=== PATIENT | male | born 1965 | race African-American/Black ===

== ENCOUNTER 2016-11-05 13:49 | Inpatient (IN) | payer OTHER ==
[~2016-11-05] VITALS: Ht 180.3 cm; Wt 105.7 kg
--- NOTE | ~2016-11-05 | EKG ---
PATIENT: JAYMIE KELLOGG UNIT #: [id number] Ventricular Rate: 102 BPM Atrial Rate: 102 BPM P-R Interval: 150 ms QRS Duration: 88 ms Q-T Interval: 368 ms QTC Calculation(Bezet): 479 ms P [place]: 38 degrees Calculated R [place]: 30 degrees Calculated T [place]: 20 degrees Diagnosis Line: Sinus tachycardia Diagnosis Line: Possible Left atrial enlargement Diagnosis Line: Borderline ECG Diagnosis Line: No previous ECGs available Diagnosis Line: Confirmed by KRYSTAL LACY MD ([id number]) on 11/05/2016 Diagnosis Line: 7:01:21 PM INTERPRETING MD: REGINO MONTOYA
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
--- NOTE | ~2016-11-05 | US77 ---
[facility] A Service of [facility] & [facility] RADIOLOGY TEXT RESULTS PATIENT: JAYMIE KELLOGG LOCATION: [facility] 568-01 : [birth year] UNIT #: [id number] AGE: [address]: Dre Hammond MD SEX: M ORDER DR: [id number] [facility] [address] [place], [place] [address] [id number] MR#: [id number] Acc #: [id number] NAME: JAYMIE KELLOGG : 1965 SEX: M STUDY DATE/TIME: 11/05/2016 20:43 UNIT: [facility] ROOM: [facility] STUDY DESCRIPTION: US Kidney Bilateral Complete Attending Physician: Dre Hammond M.D. Ordering Physician: Elma Ortez M.D. Primary Care Physician: Primary Care Physician No MEDICAL IMAGING REPORT This report is preliminary unless electronic signature is present EXAM Bilateral renal ultrasound HISTORY Acute renal insufficiency today. Creatinine 2.5. FINDINGS Ultrasound examination of the kidneys demonstrates no renal mass or hydronephrosis. Both kidneys measure approximately 11 cm in length. No focal renal atrophy. No perinephric fluid collection. Survey of the urinary bladder is normal. IMPRESSION Normal ultrasound examination of both kidneys. Dictated by... Juwan Melendez M.D. THIS IS AN ELECTRONICALLY VERIFIED REPORT Juwan Melendez M.D. at 11/06/2016 4:12 PM PO/mariza TD: 11/06/2016 10:12 JOB #: [id number] MEDICAL IMAGING REPORT Page 1 of 1 COPY
--- NOTE | ~2016-11-05 | DS ---
Unit #: [id number] #: [id number] Patient: JAYMIE KELLGOG [id number] [address] [address] [id number] I MR#: [id number] NAME: JAYMIE KELLOGG ROOM: 568 Age: 50 Sex: M Admission Date: 11/05/2016 : 1965 Discharge Date: 11/06/2016 Attending Physician: Dre Hammond M.D. Primary Care Physician: No Primary Care Physician DISCHARGE SUMMARY DISCHARGE DIAGNOSES 1. Acute kidney injury. 2. Hypertension. 3. Rhabdomyolysis. 4. Metabolic acidosis. 5. Hypertension. HOSPITAL COURSE The patient is a 50-year-old male who presented to [facility] emergency department secondary to body cramps. 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 He was brought to the emergency department and was noted to have a creatinine of 2.8 and a CK of 586. He was given a 1 liters normal saline bolus and some Flexeril. He was admitted for acute kidney injury. The day following admission the patient's creatinine has fallen from 2.8 to 1.4. CK is slightly more elevated at 1100. Checks of TSH, free T4 are normal. Given reversal of the patient's acute kidney injury with fluids, the patient is being discharged home at this time. Regarding the patient's hypertension, his medications have been modified, given that he was on both an LEONCIO and an ARB. It was felt that this contributed to his acute kidney injury. The patient is being discharged on Norvasc and metoprolol. DISCHARGE MEDICATIONS 1. Toprol XL 25 mg p.o. daily. 2. Amlodipine 5 mg 1 p.o. daily. 3. Hydrocodone/acetaminophen 7.5/325 mg 1 p.o. t.i.d. FOLLOWUP 1. The patient should follow up with his primary care provider, Dr. Urban, in one week. 2. He should have a CBC prior and a prescription has been written. Dictated by... Dre Hammond M.D. RADHA/bee Unit #: [id number] #: [id number] Patient: JAYMIE KELLOGG TD: 11/09/2016 10:04 JOB #: [id number] DISCHARGE SUMMARY Page 1 of 1 X Dre Hammond MD X DISCHARGE SUMMARY
--- NOTE | ~2016-11-05 | CO ---
Unit #: [id number] #: [id number] Patient: JAYMIE KELLOGG [id number] [address] [address] [id number] I MR#: [id number] NAME: JAYMIE KELLOGG ROOM: 568 Age: 50 Sex: M Admission Date: 11/05/2016 : 1965 Attending Physician: Dre Hammond M.D. Primary Care Physician: No Primary Care Physician Consultation Date: 11/06/2016 CONSULTATION REPORT REASON FOR CONSULT Acute kidney injury. HISTORY OF PRESENT ILLNESS Mr. Kellogg is a 50-year-old gentleman with a history of hypertension, who looks like he receives most of [facility] at the [facility], who was admitted yesterday with acute kidney injury and heat exhaustion. Patient is a very poor historian and will only answer yes and no to questions this morning. Most of the history was obtained from the chart. 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 It got to the point where he felt poorly enough to come to the emergency room. At that time, he was found to have an acute kidney injury and some mild rhabdomyolysis. He has received IV fluids since with some significant improvement in his kidney function. All of his blood pressure medications were held. He had been drinking fairly heavily the day before. He also uses marijuana. He denies any preadmission urinary complaints. He does not have any NSAID exposure that I am aware of. No history of kidney issues or kidney stones. PAST MEDICAL HISTORY 1. Hypertension. 2. Tobacco abuse. 3. Marijuana use. 4. Alcohol abuse. PAST SURGICAL HISTORY Knee surgery. MEDICATIONS His home meds are: 1. Zestril 10 mg a day. 2. Lortab p.r.n. 3. Eprosartan with hydrochlorothiazide daily. ALLERGIES No known drug allergies. FAMILY HISTORY Significant for hypertension and heart disease. No family history of kidney disease that I am aware of. SOCIAL HISTORY The patient does smoke and use marijuana. He drank heavily on the day prior to admission. No IV drug use. Unit #: [id number] #: [id number] Patient: JAYMIE KELLOGG REVIEW OF SYSTEMS A complete 12-point review of systems was attempted but again was made difficult due to the patient's limited verbal responses to questions. He has not complained of any headache or dizziness. No nosebleed, sore throat or earache. No chest pain or palpitations. No cough, shortness of air or hemoptysis. He denies any vomiting or diarrhea. He says his muscle cramps are better. No rashes or itching. No flank pain, no fevers or chills documented. No bleeding, no recent weight changes. Unless otherwise indicated, the review of systems was negative. PHYSICAL EXAMINATION VITAL SIGNS: Patient is afebrile. Pulse 76, respiratory rate 18, blood pressure 140/97. GENERAL: This is 50-year-old white male, somewhat lethargic, but in no acute distress. HEENT: Head is atraumatic, normocephalic. Eyes show pink conjunctivae with no scleral icterus. No nasal drainage, no nosebleed. Oropharynx is moist with no thrush. NECK: No JVD or rigidity. HEART: Regular rate and rhythm with no significant murmur or rub appreciated. LUNGS: Clear with no wheezing or rhonchi. Breathing is nonlabored. ABDOMEN: Appears soft, nontender. Bowel sounds are present without masses. EXTREMITIES: No lower extremity cyanosis or pitting edema. Skin is dry with no rashes. MUSCULOSKELETAL EXAM: No joint effusions noted, no CVA tenderness to palpation. NEUROLOGICAL EXAM: Cranial nerves are grossly intact with no focal neurologic deficits. LYMPHATIC EXAM: There is no neck cervical lymphadenopathy. PSYCHIATRIC EXAM: Difficult to assess but he does seen withdrawn. DIAGNOSTIC STUDIES IMAGING: Chest x-ray was negative. LABORATORY: Chemistry this morning - sodium 141, potassium 3.6, chloride 109, bicarb improved to 22, creatinine improved down to 1.4. CK level is 1141. CBC was unremarkable with a hemoglobin of 11.8. Urine spot sodium was 24. Total protein was high yesterday at 8.7 consistent with his dehydration. Urine drug screen positive for marijuana. Urinalysis - he did have 2+ protein and no significant blood. Admission creatinine was 2.8, admission calcium 10.3, admission CK 586. Therefore, overall, his creatinine has improved from 2.8 down to 1.4 this morning. ASSESSMENT AND PLAN 1. Acute kidney injury. This looks to be all prerenal from dehydration from being in the heat with thiazide on board for blood pressure Unit #: [id number] #: [id number] Patient: JAYMIE KELLOGG control. Also, he would have altered renal compensation on an LEONCIO inhibitor and an angiotensin receptor ana. He is improving and we will continue to hold his home blood pressure medicines and hydration has been ordered. Dr. Ortez has also ordered a kidney ultrasound. 2. Hypertension. I would avoid using the LEONCIO/ARB class as well as the thiazide with this acute kidney injury. I would recommend using Norvasc and/or a beta ana going forward. 3. Rhabdomyolysis. This is mild in nature and I will order a TSH level. 4. Metabolic acidosis. This is likely related to his renal insufficiency and has improved with hydration. 5. Alcohol, tobacco and marijuana use. Patient was counseled to quit all three. Would like to thank Dr. Ortez for this consult and the opportunity to participate in the evaluation and care of Mr. Kellogg. Dictated by... Bryan Hernandez Jr., MGa. KASSIDY/guru TD: 11/06/2016 13:07 JOB #: [id number] CONSULTATION REPORT Page 1 of 1 X Bryan Hernandez MD X CONSULTATION REPORT
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
[2016-11-05 14:46] LABS: BASOPHIL# 0.1 X10e3 (0-0.3); EOSINOPHIL% 0.4 % (0.0-7.0); HEMATOCRIT 41.5 % (38.0-50.0); HEMOGLOBIN 13.5 gm/dL (13.0-16.0); LYMPHOCYTE# 2.2 X10e3 (1.0-3.5); LYMPHOCYTE% 17.3 % (17.0-45.0); MEAN CELL VOLUME 85.7 FL (83-96); MEAN CORPUSCULAR HEMOGLOBIN 27.9 PG (28-34); MEAN CORPUSCULAR HGB CONC 32.6 g/dL (30-36); MEAN PLATELET VOLUME 10.2 FL (6.5-11.5); MONOCYTE# 1.4 X10e3 (0-1.0); MONOCYTE% 10.6 % (3.0-12.0); NEUTROPHIL# 9.1 X10e3 (1.5-7.1); NEUTROPHIL% 70.7 % (40-75); PLATELET COUNT 252 X10e3 (140-420); RED BLOOD COUNT 4.84 X10e (3.90-5.60); RED CELL DISTRIBUTION WIDTH 15.4 % (11.0-15.5); WHITE BLOOD COUNT 12.9 X10e3 (4.0-10.5)
[2016-11-05 14:48] LABS: DIFF IND NO
[2016-11-05 15:10] LABS: CALCIUM SERUM 10.3 mg/dL (8.4-10.2); CREATININE SERUM 2.8 mg/dL (0.6-1.4); POTASSIUM 3.7 mmol/L (3.5-5.1)
[2016-11-05] MEDS ORDERED: LISINOPRIL PO (16:08)
[2016-11-05] MEDS ORDERED: TEVETEN PO (16:09)
[2016-11-05] MEDS ORDERED: LORTAB 7.5-3251 EACH PO (16:09)
[2016-11-05 17:38] LABS: URINE SOURCE CLEAN CATCH
[2016-11-05 17:45] LABS: URINE APPEARANCE CLOUDY; URINE BILIRUBIN NEG (NEG); URINE BLOOD NEG (NEG); URINE COLOR DK YELLOW; URINE GLUCOSE NEG (NEG); URINE KETONE TRACE (NEG); URINE LEUKOCYTE ESTERASE TRACE (NEG); URINE NITRATE NEG (NEG); URINE PROTEIN 2+ (NEG); URINE SPECIFIC GRAVITY 1.022 (1.003-1.035)
[2016-11-05 17:48] LABS: URBCS1 AUWI 0-2 /[HPF] (0-2); URINE BACTERIA AUWI NEG (NEGATIVE); URINE SQUAMOUS EPITHELIAL CELL OCC /[HPF]
[2016-11-05 17:51] LABS: CULTURE INDICATED? NO
[2016-11-05 18:07] LABS: AMPHETAMINE NEG (NEG); BARBITURATES NEG (NEG); BENZODIAZEPINES NEG (NEG); COCAINE NEG (NEG); MARIJUANA POS (NEG); OPIATES NEG (NEG); TRICYCLIC ANTIDEPRESSANTS NEG (NEG); U METHADONE NEG (NEG)
[2016-11-05 18:15] LABS: BUN/CREATININE RATIO 11.6; CALCIUM SERUM 9.4 mg/dL (8.4-10.2); CREATININE SERUM 2.5 mg/dL (0.6-1.4); GLOM FILT RATE Estimated 33.2 mL/min (>60); POTASSIUM 3.6 mmol/L (3.5-5.1)
[2016-11-05 18:16] LABS: ALBUMIN SERUM 4.6 g/dL (3.5-5.0); ALKALINE PHOSPHATASE 59 U/L (32-92); ALT (SGPT) 45 U/L (10-40); AST (SGOT) 51 U/L (10-42); BILIRUBIN,TOTAL 0.7 mg/dL (0.2-2.0); MAGNESIUM 2.1 mg/dL (1.6-3.0); PROTEIN TOTAL SERUM 8.7 g/dL (6.0-8.3)
[2016-11-05 18:35] LABS: BILIRUBIN, DIRECT <0.1 mg/dL (0.0-0.2); BILIRUBIN,INDIRECT 0.6 mg/dL (0.0-0.9)
[2016-11-05 20:55] LABS: SODIUM URINE RANDOM 24 mmol/L
[2016-11-05 20:56] LABS: CREATININE,RANDOM URINE 570 mg/dL
[2016-11-06 06:07] LABS: BASOPHIL% 0.6 % (0-2.5); EOSINOPHIL# 0.1 X10e3 (0-0.7); EOSINOPHIL% 0.9 % (0.0-7.0); HEMATOCRIT 35.6 % (38.0-50.0); HEMOGLOBIN 11.8 gm/dL (13.0-16.0); LYMPHOCYTE# 1.9 X10e3 (1.0-3.5); LYMPHOCYTE% 25.2 % (17.0-45.0); MEAN CELL VOLUME 85.9 FL (83-96); MEAN CORPUSCULAR HEMOGLOBIN 28.4 PG (28-34); MEAN PLATELET VOLUME 9.8 FL (6.5-11.5); MONOCYTE# 0.8 X10e3 (0-1.0); MONOCYTE% 10.7 % (3.0-12.0); NEUTROPHIL# 4.7 X10e3 (1.5-7.1); NEUTROPHIL% 62.6 % (40-75); PLATELET COUNT 200 X10e3 (140-420); RED BLOOD COUNT 4.14 X10e (3.90-5.60); RED CELL DISTRIBUTION WIDTH 15.2 % (11.0-15.5); WHITE BLOOD COUNT 7.6 X10e3 (4.0-10.5)
[2016-11-06 06:25] LABS: DIFF IND NO
[2016-11-06 06:56] LABS: ALBUMIN SERUM 3.4 g/dL (3.5-5.0); BILIRUBIN,TOTAL 0.6 mg/dL (0.2-2.0); BUN/CREATININE RATIO 17.14; CALCIUM SERUM 8.6 mg/dL (8.4-10.2); CREATININE SERUM 1.4 mg/dL (0.6-1.4); POTASSIUM 3.6 mmol/L (3.5-5.1); PROTEIN TOTAL SERUM 6.6 g/dL (6.0-8.3)
[2016-11-06] MEDS ORDERED: AMLODIPINE BESYL5 MG PO (11:16)
[2016-11-06] MEDS ORDERED: TOPROL XL PO (11:22)
[2016-11-06 13:35] LABS: THYROID STIMULATING HORMONE 0.87 uIU/ml (0.34-5.60)
[2016-11-06 13:42] LABS: FREE THYROXIN (T4) 0.9 ng/dL (0.58-1.64)
== END 2016-11-06 18:03 | disposition home or self-care (01) | DRG 683 ==
LOC: CED 13:49 → CEDOF 16:55 → CED 17:14 → C5C 20:12 → CEDOF 20:12 → C5C 11-06 07:44
PROVIDERS: Emergency Medicine; Family Medicine; Internal Medicine
DX: N17.9 Acute kidney failure, unspecified (principal); M62.82 Rhabdomyolysis; E87.2 Acidosis; I10 Essential (primary) hypertension; Z82.49 Family history of ischemic heart disease and other diseases of the circulatory system; X30.XXXA Exposure to excessive natural heat, initial encounter; E86.0 Dehydration; Z71.6 Tobacco abuse counseling; Z71.41 Alcohol abuse counseling and surveillance of alcoholic; Z71.51 Drug abuse counseling and surveillance of drug abuser; F17.210 Nicotine dependence, cigarettes, uncomplicated; F10.10 Alcohol abuse, uncomplicated; F12.90 Cannabis use, unspecified, uncomplicated
CPT/HCPCS: 36415; 71020; 76770; 80048; 80053; 80076; 80307; 81003; 82550; 82570; 83735; 84300; 84439; 84443; 85025; 87040; 89190; 93005; 96360; 99285